=== PATIENT | male | born 1990 | race Caucasian/White ===

== ENCOUNTER 2022-11-07 09:11 | Emergency (ER) | payer OTHER ==
[~2022-11-07] VITALS: Ht 190.5 cm; Wt 86.2 kg
--- NOTE | 2022-11-07 09:52 | NUR ---
DR VELARDE AT BEDSIDE FOR EVAL.
[2022-11-07] MEDS ORDERED: TDAP [DIPH/PERTUSSIS/TET] 0.5 ML VIAL IM ONE ×2 (10:00→10:08)
[2022-11-07] MEDS ORDERED: HYDROCODONE/APAP 5/325MG TABLET PO ONE (10:00)
[2022-11-07] MEDS ORDERED: CEPHALEXIN MONOHYDRATE 500 MG CAPSULE PO ONE ×2 (10:00→10:08)
[2022-11-07] MEDS ORDERED: GELATIN SPONGE,ABSORBABLE 1 SPONGE SPONGE TP ONE ×3 (10:06→12:37)
[2022-11-07] MEDS ORDERED: HYDROCODONE/APAP 5/325MG TABLET ONE (10:08)
--- NOTE | 2022-11-07 10:32 | NUR ---
PROVIDED W/ WOUND CARE AND DRESSING.
[2022-11-07] MEDS ORDERED: HYDR-3972 PO (10:52)
[2022-11-07] MEDS ORDERED: IBUP-1953 PO (10:52)
[2022-11-07] MEDS ORDERED: CEPH500C2 PO (10:52)
[2022-11-07 13:37] VITALS: BP 138/70
== END 2022-11-07 13:38 | disposition home or self-care (01) ==
LOC: ER 09:19
DX: S61.310A Laceration without foreign body of right index finger with damage to nail, initial encounter (principal); W26.0XXA Contact with knife, initial encounter; Y93.89 Activity, other specified; Y92.513 Shop (commercial) as the place of occurrence of the external cause; Y99.0 Civilian activity done for income or pay
CPT/HCPCS: 99283; 90471; 90715; 73140; A6403

== ENCOUNTER 2022-11-07 19:45 | Emergency (ER) | payer OTHER ==
[~2022-11-07 19:45] MED LIST: CEPH500C2 PO; HYDR-3972 PO; IBUP-1953 PO
--- NOTE | 2022-11-07 21:00 | NUR ---
CALLED TO [facility] NO ANSWER
--- NOTE | 2022-11-07 21:48 | NUR ---
NOT IN WAITING ROOM
== END 2022-11-07 21:49 | disposition left against medical advice (07) ==
LOC: ER 19:47
DX: Z53.21 Procedure and treatment not carried out due to patient leaving prior to being seen by health care provider (principal)